=== PATIENT | female | born 1955 ===

== ENCOUNTER 2025-03-24 08:50 | Outpatient (AMB) | payer MEDICARE, SELFPAY ==
--- OUTSIDE RECORDS SUMMARY | 2025-03-24 09:50 | XMS_ITS | Patient Health Record ---
[facility] Address [address] [place] [address] Care Team Providers Care Finish Filer Name Role Phone Gurinder CASTILLO, Jean Marie Primary Care Provider Norberto Fry Unavailable [phone] Allergies Allergen (clinical drug ingredient) Drug/Non Drug Allergy documented on EMR Reaction Allergy Type Onset Date Status seasonal allergies Unknown Drug Allergy Active Reason For Referral No Information Medications Medication SIG (Take, Route, Frequency, Duration) Notes Start Date End Date Status Multivitamin Adult Orally A ctive Lisinopril-hydroCHLOROthi azide 10-12.5 MG 1 tablet Orally Once a day Active Simvastatin 40 MG 1 tablet in the even ing Orally Once a day Active Dulera 100-5 MCG/ACT USE 2 PUFFS INHALAT ION 2 TIMES A DAY Inhalation; Duration: 30 Active ProAir HFA Active Vitamin D 1000 UNIT 1 tablet Orally Once a day Active Vitamin C 500 MG Orally Act messi Omeprazole Active Metoprolol Succinate ER Not-Taking Physical Therapy 3-4x per week for 3- 4 weeks 08/08/2016 Not-Taking Immunizations Vaccine Route Administration Date Status Comme nts Influenza Unknown 03/11/2016 Administered Social History Tobacco use other than smoking: Question Answer Notes Are you an other tobacco user? No Plan Of Treatment Pending Test Test Name Order Date X ray : Foot, left 2V 04/07/2016 X ray : Foot, right 2V 04/07/2016 Insurance Providers Payer Name Payer Address Payer Phone Subscriber Number Group Number Insured Name Patient Relationship to Insured Coverage Start Date Coverage End Date [facility]) [address] [place] [id number] Self - patient is the insured Medical (General) History Medical History History ICD Code asthma Broken bones Cataracts Diverticulosis High blood pressure Reflux Sinus conditions Measles Chicken pox Surgical History Surgery Date(Month/Year) heart surgery unspecified 02/2016 cataract surgery 2014 wisdom teeth extraction 1974 tonsillectomy 196 [place] History Reason Date(Month/[place] [facility] [place] End[place] 12/2016
== END 2025-03-24 08:57 | disposition home or self-care (01) ==
LOC: HO.HMGAL 08:50
PROVIDERS: PCP Internal Medicine; Visit Provider Registered Nurse Emergency
DX: J30.89 Other allergic rhinitis (principal)
CPT/HCPCS: 95117; 95165